=== PATIENT | male | born 1995 | race African-American/Black ===

== ENCOUNTER 2017-12-21 17:16 | Emergency (ER) | payer MEDICAID ==
[~2017-12-21] VITALS: Ht 182.9 cm; Wt 85.0 kg
[2017-12-21 17:44] VITALS: BP 110/63
[2017-12-21] MEDS ORDERED: CYCLOBENZAPRINE 10MG TABLET PO ONE (18:30)
[2017-12-21] MEDS ORDERED: IBUPROFEN 600MG TABLET PO ONE (18:30)
== END 2017-12-22 00:15 | disposition home or self-care (01) ==
LOC: ER 12-22 00:04
DX: M79.1 Myalgia (principal); V49.9XXA Car occupant (driver) (passenger) injured in unspecified traffic accident, initial encounter; Y93.9 Activity, unspecified; Y92.9 Unspecified place or not applicable
CPT/HCPCS: 99283